=== PATIENT | male | born 1950 ===

== ENCOUNTER 2021-01-26 17:33 | Emergency (ER) | payer SELFPAY ==
[~2021-01-26] VITALS: Ht 167.6 cm; Wt 75.0 kg
[2021-01-26 17:37] VITALS: BP 158/100
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
--- NOTE | 2021-01-26 20:15 | NUR ---
PT LEFT WITHOUT DC PAPERWORK. PT ALSO STILL HAD HIS IV IN HIS RIGHT FOREARM
--- NOTE | 2021-01-26 20:26 | NUR ---
[facility] CALLED TO INFORM THEM THAT PT LEFT WITH IV IN HIS ARM
== END 2021-01-26 20:27 | disposition left against medical advice (07) ==
LOC: ED 18:00
DX: F10.220 Alcohol dependence with intoxication, uncomplicated (principal); R41.82 Altered mental status, unspecified; Y90.0 Blood alcohol level of less than 20 mg/100 ml
CPT/HCPCS: 99283